=== PATIENT | male | born 1985 | race Caucasian/White ===

== ENCOUNTER 2020-05-04 12:46 | Emergency (ER) | payer OTHER, SELFPAY ==
--- NOTE | ~2020-05-04 | XR_ITS ---
EXAMINATION: XR FOOT, RIGHT CLINICAL INFORMATION: Right lateral pain with ambulation COMPARISON: None TECHNIQUE: Three views of the right foot. FINDINGS: No fracture or dislocation. Alignment is anatomic. Joint spaces are maintained. The soft tissues are unremarkable. XR/XR foot RT min 3V IMPRESSION: Normal right foot.
[2020-05-04 13:19] VITALS: BP 148/83; PULSE 75; RESP 16; TEMP 36.6; O2SAT 100; BMI 20.7
--- NOTE | 2020-05-04 15:58 | PC.NURSE ---
CALLED NOT IN [facility].
[2020-05-04 16:35] VITALS: BP 116/73; PULSE 67; RESP 16; TEMP 36.8; O2SAT 100
--- NOTE | 2020-05-04 17:12 | ED.EXTPRO ---
HPI - Extremity Problem General Chief complaint: Extremity Problem Stated complaint: FOOT INJ Time Seen by Provider: 05/04/20 17:12 Source: patient Mode of arrival: ambulatory Limitations: no limitations History of Present Illness HPI Narrative: 34-year-old male presented with 1 week of right foot pain, patient do not remember hurting his right foot no recent trauma, had this episode once in the past but did not seek medical attention then and resolved on its own. No history of arthritis or gout. Do not remember hurting his right foot. Only hurts when he bear weight on right foot. Related Data Allergies Allergy/AdvReac Type Severity Reaction Status Date / Time No Known Allergies Allergy Verified 05/04/20 16:38 [No Known Allergies*] Review of Systems Review of Systems: Yes all other systems are reviewed and are negative PMFSH Past Medical History Medical History No known health problems Social History Social History Smoking Status: Never smoker Use of substances other than those prescribed or required for medical reasons: No Advance Directives: No Advance Directives Information Provided: Yes Physical Exam Vital Signs: Vital Signs: Last Vital Signs Temp 98.3 F 05/04/20 16:35 Pulse 67 05/04/20 16:35 Resp 16 05/04/20 16:35 BP 116/73 05/04/20 16:35 Pulse Ox 100 05/04/20 16:35 Body Mass Index 20.7 Vital signs are in normal range. Const: General: cooperative, healthy appearing, comfortable and no acute distress Orientation/consciousness: oriented to person HENMT: Head: Yes normal to inspection Chest: Chest palpation & inspection: normal inspection of the chest GI: Inspection: Yes normal to inspection and No distended : General: Yes no CVA tenderness Back/Spine/Pelvis: Back: no CVA tenderness Skin: General skin exam: no rashes or lesions noted Neuro: General: oriented to person and CN's II-XI intact bilaterally Extrem: Other: Right foot exam: No deformity, no step-off, no ecchymosis, no hematoma, good cap refill to to 5 digits is less than 2 seconds, good PT/DP pulsation, light touch intact to the right foot, able to ambulate with mild discomfort when he stepped on the lateral part of the foot. MDM - Extremity (Nontraumatic) Imaging Data Right foot x-ray: Radiologist's impression: No acute pathology Discharge Plan Discharge Clinical Impression: Foot sprain Qualifiers: Encounter type: initial encounter Laterality: right Qualified Code(s): S93.601A - Unspecified sprain of right foot, initial encounter Patient Disposition: Home, Self-Care Instructions: Foot Sprain (ED) Additional Instructions: Take ibuprofen 200 mg tablets every 6 hours if needed for pain, keep elevating right lower extremity at nighttime. Referrals: Physician,None [Primary Care Provider] - 2 days
== END 2020-05-04 17:40 | disposition home or self-care (01) ==
PROVIDERS: Emergency Provider Emergency Medicine
DX: S93.601A Unspecified sprain of right foot, initial encounter (principal); M79.671 Pain in right foot; W01.0XXA Fall on same level from slipping, tripping and stumbling without subsequent striking against object, initial encounter; Y93.9 Activity, unspecified; Y92.9 Unspecified place or not applicable; Y99.9 Unspecified external cause status
CPT/HCPCS: 73630; 99284

== ENCOUNTER 2020-05-06 18:34 | Emergency (ER) | payer OTHER, SELFPAY ==
--- NOTE | ~2020-05-06 | XR_ITS ---
EXAMINATION: XR FOOT, RIGHT CLINICAL INFORMATION: Heel laceration, evaluate for foreign body. COMPARISON: 05/04/2020 TECHNIQUE: AP, lateral, and oblique views of the right foot. FINDINGS: Soft tissue laceration at the lateral aspect of the heel pad. No radiopaque foreign body. No fracture. XR/XR foot RT 2V IMPRESSION: No radiopaque foreign body.
[2020-05-06 19:06] VITALS: BP 122/83; PULSE 73; RESP 16; TEMP 36.6; O2SAT 99; BMI 24.0
--- NOTE | 2020-05-06 19:56 | ED_ITS ---
HPI - Wound/Laceration General Chief Complaint: Wound/Laceration Stated Complaint: FOOT INJ Time Seen by Provider: 05/06/20 19:09 Source: patient Mode of arrival: ambulatory Limitations: no limitations History of Present Illness HPI narrative: Otherwise healthy 34-year-old male presents with complaint of laceration to the plantar aspect of the right foot heel area at home from stepping through a glass table while helping sister at home putting up lighting. Up-to-date on his tetanus vaccination 2 weeks ago, he was here couple days ago for right ankle injury that is doing well. He denies any other injury. Onset (ago): hour(s) Extremity Location: right: foot Place: home Patient tetanus UTD: Yes Context: accidental Associated symptoms: none Related Data Previous Rx's Medication Instructions Recorded amoxicillin-pot clavulanate 1 tab PO BID 5 Days #10 tab 05/06/20 [Augmentin] Allergies Allergy/AdvReac Type Severity Reaction Status Date / Time [place] Allergy Hives Verified 05/06/20 19:10 Review of Systems Review of Systems: Otherwise 12 point review of system is negative Yes all other systems are reviewed and are negative PMFSH Past Medical History Medical History No known health problems Social History Social History Alcohol intake: never Smoking Status: Never smoker Smoked in Last 30 Days: No Use of substances other than those prescribed or required for medical reasons: No Advance Directives: No Advance Directives Information Provided: Yes Physical Exam Vital Signs: Vital Signs: Last Vital Signs Temp 97.8 F 05/06/20 19:06 Pulse 73 05/06/20 19:06 Resp 16 05/06/20 19:06 BP 122/83 05/06/20 19:06 Pulse Ox 99 05/06/20 19:06 Body Mass Index 24.0 Reviewed Const: General: cooperative and healthy appearing; No acute distress or intoxicated appearing Nutritional Appearance: average body habitus Orientation/consciousness: patient oriented x3 HENMT: Head: Yes normal to inspection Ears: hearing grossly normal bilaterally Resp: Effort & Inspection: normal respiratory effort Cardio: Jugular venous distension: no JVD : General: Yes no CVA tenderness Back/Spine/Pelvis: Back: no CVA tenderness Skin: General skin exam: no rashes or lesions noted Neuro: General: patient oriented x3 Extrem: General: Yes normal to inspection Ankle/foot/toe images: 1. 2 in abrasion like superficial laceration appears to be superficial. No visible or palpable evidence of foreign body. Course Course Course Narrative: X-ray done protocol in triage without evidence of foreign body exam is consistent with this. More of a skin flap than a suturable laceration does clean thoroughly and Dermabond applied. Will discharge home with supportive care, return, follow-up instructions. Stable for discharge. MDM - Wound/Laceration Differential Diagnosis Differential diagnosis: Likely laceration, abrasion and avulsion of skin Medical Records Attestation: I reviewed the patient's medical records. Lab Data Attestation: I reviewed the patient's lab results. Imaging Data Right foot x-ray: Radiologist's impression: [address] [id number] ReportSigned Patient: Remberto Corey MMR#: [id number]: [id number]:[id number]/Sex: 34 / MADM Date: 05/06/20Loc: HO.EDAttending Dr: Ordering Physician: Alf Canada NP Date of Service: 05/06/20 Procedure(s): XR foot RT 2V Accession Number(s): [id number] cc: Alf Canada NP~ EXAMINATION: XR FOOT, RIGHT CLINICAL INFORMATION: Heel laceration, evaluate for foreign body. COMPARISON: 05/04/2020 TECHNIQUE: AP, lateral, and oblique views of the right foot. FINDINGS: Soft tissue laceration at the lateral aspect of the heel pad. No radiopaque foreign body. No fracture. XR/XR foot RT 2V IMPRESSION: No radiopaque foreign body. Dictated By:KENDALL MARTINEZ MDSigned By:<Electronically signed by KENDALL MARTINEZ MD in [place]>05/06/201951 DD/ 16TD/TT: Landscape Architect: JUAN LUIS Discharge Plan Discharge Clinical Impression: Laceration Patient Disposition: Home, Self-Care Instructions: Laceration (ED) Additional Instructions: Keep site clean and dry The skin glue will start to follow-up in a couple days by self Take medications prescribed Return if any concerns with symptom Otherwise follow-up as instructed Thank you Prescriptions: New amoxicillin-pot clavulanate [Augmentin] 875-125 mg tablet 1 tab PO BID 5 Days Qty: 10 RF: 0 Referrals: Holly Espinoza NP [Primary Care Provider] - 1 week Stand Alone Forms: Work/School Release
== END 2020-05-06 20:23 | disposition home or self-care (01) ==
PROVIDERS: Emergency Provider Internal Medicine; PCP Nurse Practitioner Family
DX: S91.312A Laceration without foreign body, left foot, initial encounter (principal); W25.XXXA Contact with sharp glass, initial encounter; Y93.E9 Activity, other interior property and clothing maintenance; Y92.019 Unspecified place in single-family (private) house as the place of occurrence of the external cause; Y99.9 Unspecified external cause status
CPT/HCPCS: 73620; 99283; 99284